=== PATIENT | female | born 1950 | race African-American/Black ===

== ENCOUNTER 2023-07-02 12:18 | Emergency (ER) | payer OTHER ==
[~2023-07-02] VITALS: Ht 165.1 cm; Wt 64.0 kg
[2023-07-02 12:20] VITALS: O2SAT 96
[2023-07-02 14:00] LABS: EOSINOPHILS % 4.2 % (0.0-5.0); HEMATOCRIT. 34.2 % (36.0-48.0); HEMOGLOBIN. 11.3 g/dL (12.0-16.0); LYMPHOCYTES % 30.2 % (20.0-50.0); MEAN CORPUSCULAR HEMOGLOBIN 30.6 pg (28.0-32.0); MEAN CORPUSCULAR HGB CONC 33.1 g/dL (31.0-37.0); MEAN CORPUSCULAR VOLUME 92.6 fL (81.0-99.0); MEAN PLATELET VOLUME 9.6 fl (7.4-10.4); MONOCYTES % 10.8 % (2.0-8.0); NEUTROPHILS % 53.8 % (40.0-76.0); PLATELET 118 x1000/uL (130-400); RED CELL DISTRIBUTION WIDTH 14.5 % (11.6-14.6); WHITE BLOOD COUNT 2.9 x1000/uL (4.5-11.0)
[2023-07-02 14:04] LABS: CHLORIDE 115 mEq/L (98-107); POTASSIUM 4.1 mEq/L (3.5-5.1); SODIUM 146 mEq/L (136-145)
[2023-07-02 14:05] LABS: CALCIUM 9.6 mg/dL (8.7-10.4); CARBON DIOXIDE 24 mEq/L (21-32)
[2023-07-02 14:08] LABS: PROTHROMBIN TIME 11.1 sec (9.6-11.0)
[2023-07-02 14:10] LABS: CREATININE 1.9 mg/dL (0.6-1.0); GLUCOSE 155 mg/dL (70-105); TROPONIN I HIGH SENSITIVITY 8 ng/L (3.0-34); UREA NITROGEN BLOOD 41 mg/dL (9-23)
[2023-07-02 14:12] LABS: ALANINE AMINOTRANSFERASE 9 IU/L (10-49); ALBUMIN 3.6 g/dL (3.2-4.8); ASPARTATE AMINOTRANSFERASE 13 IU/L (<34); BILIRUBIN TOTAL 0.3 mg/dL (0.1-1.0); PROTEIN TOTAL 5.9 g/dL (6.0-8.3)
[2023-07-02 16:17] LABS: TROPONIN I HIGH SENSITIVITY 4 ng/L (3.0-34)
[2023-07-02 17:30] VITALS: TEMP 98.5
[2023-07-02 18:16] LABS: TROPONIN I HIGH SENSITIVITY 4 ng/L (3.0-34)
[2023-07-02] MEDS ORDERED: NON FORMULARY PATIENT HOME MED PO ONE (19:15)
[2023-07-02] MEDS ORDERED: CLONIDINE 0.3MG TABLET PO ONE (19:15)
[2023-07-02] MEDS ORDERED: TAMSULOSIN HCL 0.4MG SR CAPSULE PO ONE (19:15)
[2023-07-02] MEDS ORDERED: CLONIDINE 0.1MG TABLET PO NR (20:30)
[2023-07-02 20:44] LABS: CLARITY URINE CLEAR (CLEAR); COLOR URINE YELLOW (YELLOW); GLUCOSE URINE 2+ (NEGATIVE); KETONES URINE NEGATIVE (NEGATIVE); LEUKOCYTE ESTERASE URINE 2+ (NEGATIVE); NITRITE URINE NEGATIVE (NEGATIVE); OCCULT BLOOD URINE 1+ (NEGATIVE); PROTEIN URINE 1+ (NEGATIVE); SPECIFIC GRAVITY URINE 1.012 (1.005-1.030); UROBILINOGEN URINE 0.2 E.U./dL (0.2-1.0)
[2023-07-02] MEDS ORDERED: NON FORMULARY PATIENT HOME MED XX SCH (21:00)
[2023-07-02 21:25] LABS: SQUAMOUS EPITHELIAL CELL URINE 1+ /lpf (RARE/1+)
[2023-07-02 21:26] LABS: RBC URINE 0-2 /hpf (0-2)
[2023-07-02 21:27] LABS: BACTERIA URINE 1+; YEAST URINE NONE SEEN
[2023-07-02] MEDS: ATORVASTATIN CALCIUM 10MG TABLET PO SCH (21:30)
[2023-07-02 22:00] VITALS: BP 153/62; RESP 20
[2023-07-02] MEDS: LAMOTRIGINE 25MG TABLET PO SCH (22:01)
[2023-07-02] MEDS: LAMOTRIGINE 25MG TABLET PO STA (22:02)
[2023-07-02 22:03] VITALS: PULSE 63
[2023-07-02] MEDS: CLONIDINE 0.3MG TABLET PO NR (22:03)
[2023-07-02] MEDS: TAMSULOSIN HCL 0.4MG SR CAPSULE PO NR (22:03)
== END 2023-07-02 22:23 | disposition short-term general hospital (02) ==
LOC: ER 13:06 → CANBEDREQ 22:13 → ER 22:23
DX: R07.89 Other chest pain (principal); R91.8 Other nonspecific abnormal finding of lung field; I12.9 Hypertensive chronic kidney disease with stage 1 through stage 4 chronic kidney disease, or unspecified chronic kidney disease; E11.22 Type 2 diabetes mellitus with diabetic chronic kidney disease; N18.9 Chronic kidney disease, unspecified; J44.1 Chronic obstructive pulmonary disease with (acute) exacerbation; Z88.5 Allergy status to narcotic agent; Z98.890 Other specified postprocedural states
CPT/HCPCS: 36415; 71045; 80053; 81003; 83880; 84484; 85025; 93005; 99285